=== PATIENT | female | born 1985 | race Asian ===

== ENCOUNTER 2016-08-24 05:20 | Emergency (ER) | payer BC ==
[~2016-08-24] VITALS: Ht 170.2 cm; Wt 122.5 kg
[2016-08-24] MEDS ORDERED: Fluorescein Strips LEFT EYE ONE (05:30)
[2016-08-24] MEDS ORDERED: Fluorescein Strips ONE (05:31)
[2016-08-24] MEDS ORDERED: POLYTRIM OP SOL10 ML OPHTHALM (05:52)
[2016-08-24] MEDS ORDERED: NORCO 5-325 TA1 EACH ORAL (05:52)
[2016-08-24 05:53] VITALS: BP 127/85
--- NOTE | 2016-08-24 05:53 | Emergency Room Report ---
History of Present Illness General Chief Complaint: Eye Problems Source: Patient Present Illness HPI Is a 31-year-old female with no significant past medical history. She presents with gentleman left eye pain. About 24 hour ago she try to take out her contact and it ripped in half. She try to get the other one out him in the process scratch her eye. No other injury. Since his been getting worse. Was to the light. Better when she put a new contact in. Denies any fever chills denies any nausea vomiting. Pain is 10 out of 10. No radiation. No discharge. Allergies: Coded Allergies: No Known Allergies (Unverified , 08/24/16) Patient History Past Medical History: see triage record, old chart reviewed Past Surgical History: other Pertinent Family History: none Social History: Denies: smoking Last Menstrual Period: July 29, 2016 Now: No : 0 Para: 0 Immunizations: other Reviewed Nursing Documentation: PMH: Agreed, PSxH: Agreed Nursing Documentation-PMH Past Medical History: No Stated History Review of Systems Eye: Reports: eye pain, Denies: blurred vision ENT: Denies: ear pain, nose congestion, throat swelling Respiratory: Denies: cough, shortness of breath Cardiovascular: Denies: chest pain, palpitations Gastrointestinal: Denies: abdominal pain, diarrhea, nausea, vomiting Musculoskeletal: Denies: back pain, joint pain Skin: Denies: rash Neurological: Denies: headache, numbness Endocrine: Denies: increased thirst, increased urine Hematologic/Lymphatic: Denies: easy bruising All Other Systems: negative except mentioned in HPI Physical Exam Vital Signs Date Time Temp Pulse Resp B/P Pulse Ox O2 Delivery O2 Flow Rate FiO2 08/24/16 05:23 98.1 82 18 127/85 97 Room Air vitals normal Sp02 EP Interpretation: reviewed, normal General Appearance: well appearing, no apparent distress, alert Head: normocephalic, atraumatic Eyes: left eye other - Patient still has contact lenses. After removing the contact lens on the left, patient has a 3 millimeter cornea abrasion just over the pupil. No foreign body. Negative Mikel sign., bilateral eye EOMI, bilateral eye PERRL ENT: hearing grossly normal, normal pharynx Neck: full range of motion, supple, no meningismus Respiratory: chest non-tender, lungs clear, normal breath sounds Cardiovascular #1: regular rate, rhythm, no murmur Gastrointestinal: normal bowel sounds, non tender, no mass, no organomegaly, no bruit, non-distended Musculoskeletal: back normal, gait/station normal, normal range of motion Psychiatric: mood/affect normal Skin: warm/dry Medical Decision Making Diagnostic Impression: Primary Impression: Cornea abrasion Qualified Codes: S05.02XA - Injury of conjunctiva and corneal abrasion without foreign body, left eye, initial encounter ER Course Patient with cornea abrasion. No evidence of globe rupture. No evidence of foreign body. Told her not to wear contacts her symptoms resolved. Last Vital Signs Date Time Temp Pulse Resp B/P Pulse Ox O2 Delivery O2 Flow Rate FiO2 08/24/16 05:23 98.1 82 18 127/85 97 Room Air Status: improved Disposition: HOME, SELF-CARE Condition: Stable Scripts Polymyxin/Trimethoprim (Polytrim Eye Drops) 10 Ml Drops 2 DROP OPHTHALM THREE TIMES A DAY, #1 EA Instill in affected eye for 7 days Prov: JOSE KILLIAN M.D. 08/24/16 Hydrocodone Bit/Acetaminophen 5-325* (NORCO 5-325*) 1 Each Tablet 1 TAB ORAL Q6H Y for For Pain, #20 TAB 0 Refills Prov: JOSE KILLIAN M.D. 08/24/16 Referrals: NOT CHOSEN [facility]/,REFERRING (PCP) Additional Instructions: Did not wear contacts until symptoms completely resolve. Given at least a week. If not better in 2 days, followup with jack setter. Return if symptom worsen. JOSE KILLIAN M.D. August 24, 2016 05:53
[2016-08-24 05:57] VITALS: BP 127/85
== END 2016-08-24 05:58 | disposition home or self-care (01) ==
LOC: EMR 05:41
DX: S05.02XA Injury of conjunctiva and corneal abrasion without foreign body, left eye, initial encounter (principal); W26.8XXA Contact with other sharp object(s), not elsewhere classified, initial encounter; Y92.89 Other specified places as the place of occurrence of the external cause
CPT/HCPCS: 99284